=== PATIENT | female | born 1975 | race Caucasian/White ===

== ENCOUNTER 2022-04-09 13:30 | Emergency (ER) | payer BC ==
[~2022-04-09] VITALS: Ht 170.2 cm; Wt 81.6 kg
--- NOTE | 2022-04-09 14:30 | NUR ---
[facility] AT BEDSIDE FOR XRAY
[2022-04-09] MEDS ORDERED: CYCL10TA9 PO (15:50)
[2022-04-09] MEDS ORDERED: IBUP-1955 PO (15:50)
[2022-04-09] MEDS ORDERED: HYDROCODONE/APAP 5/325MG TABLET ONE (15:56)
[2022-04-09] MEDS ORDERED: IBUPROFEN 600 MG TABLET ONE (15:56)
[2022-04-09] MEDS ORDERED: HYDROCODONE/APAP 5/325MG TABLET PO ONE (16:00)
[2022-04-09] MEDS ORDERED: IBUPROFEN 600 MG TABLET PO ONE (16:00)
--- NOTE | 2022-04-09 16:17 | NUR ---
Patient discharged to home in stable condition. Written and verbal after care instructions given. Patient verbalizes understanding of instruction.
[2022-04-09 16:18] VITALS: BP 106/52
== END 2022-04-09 16:23 | disposition home or self-care (01) ==
LOC: ER 13:34
DX: S80.02XA Contusion of left knee, initial encounter (principal); S80.01XA Contusion of right knee, initial encounter; S40.211A Abrasion of right shoulder, initial encounter; Z60.2 Problems related to living alone; V32.5XXA Driver of three-wheeled motor vehicle injured in collision with two- or three-wheeled motor vehicle in traffic accident, initial encounter; Y93.89 Activity, other specified; Y92.89 Other specified places as the place of occurrence of the external cause; Y99.8 Other external cause status
CPT/HCPCS: 71045-TC; 73564-TC